=== PATIENT | female | born 1960 | race Caucasian/White ===

== ENCOUNTER 2022-06-29 05:12 | Day surgery (SDC) | payer OTHER ==
[~2022-06-29 05:12] MED LIST: BUSPAR PO; CRESTOR5 MG PO; ELAVIL PO; GLUMETZA1000 MG PO; HUMULIN 70100 UNIT/2
== END 2022-06-29 12:10 | disposition home or self-care (01) ==
LOC: CIR.AMB 05:12
PROVIDERS: ATTEND Surgery
DX: C50.412 Malignant neoplasm of upper-outer quadrant of left female breast (principal); E11.9 Type 2 diabetes mellitus without complications; G20 Parkinson's disease; F41.9 Anxiety disorder, unspecified; Z20.822 Contact with and (suspected) exposure to COVID-19